=== PATIENT | female | born 1970 | race Caucasian/White ===

== ENCOUNTER 2022-12-31 09:19 | Emergency (ER) | payer OTHER ==
--- OUTSIDE RECORDS SUMMARY | 2022-12-31 09:23 | XMS REPORT | Continuity of Care Document ---
:1970 Author Organization [facility] t Address [address] [place] [id number] Care Team Providers Name Role Phone Jairon Lakhani Primary Care Physician LAKEISHA SINGLETON Attending Clinician Unavailable RAINER SMITH Attending Clinician Unavailable JAIRON GANN Attending Clinician Unavailable HERNAN SAN Attending Clinician Unavailable DANIELLE CLARK Attending Clinician Unavailable URSZULA MYERS Attending Clinician Unavailable MD ROOSEVELT Attending Clinician Unavailable VY AYERS Attending Clinician Unavailable PAULA JAIN Attending Clinician Unavailable Jain PACKazya S Attending Clinician LAB90 Attending Clinician Unavailable Jairon Lakhani Attending Clinician KAL ROSE Attending Clinician Unavailable Doctor Unassigned, [place] Attending Clinician Unavailable Vy Ayers DNP Attending Clinician Kal Rose MD Attending Clinician RICHARD BROWNING Attending Clinician Unavailable LIZZIE HOGAN Attending Clinician Unavailable Thelma Brewster MD Attending Clinician [phone] Lakeisha Singleton MD Attending Clinician Only, Ang Db Test Attending Clinician Unavailable Leann Venegas Attending Clinician LEANN CAMARENA Attending Clinician Unavailable JAIRON GANN Admitting Clinician Unavailable Payers Payer Name Policy Type Policy Number Effective Date Expiration Date Tom MARTINEZ MP CVS GOLD: 9 [id number] 2022 [employer] HMO OFF 00:00:00 ST[place] [employer] OF [place] - OUT [id number] 2022 OF STATE 00:00:00 [employer] CVS 2 [id number] 2022 MARKETPLACE 00:00:00 [employer] COMMERCIAL [id number] 2022 OUT OF NETWORK 00:00:00 Problems Condition Condition Condition Status Onset Resolution Last Treating Co mments Source Name Details Category Date Date Treatment Clinician Date Obesity Obesity Disease Active Univers (BMI (BMI 5-12 ity of 30-39.9) 30-39.9) 00:00: [place] [address] Medical Branch Hypertensi Hypertensi Disease Active U nivers on, on, 08-08 ity [place] 00 [place] Mixed Mixed Disease Active Univers hyperlipid hyperlipid 08-08 it y of emia emia 00:00: [address] Allergies, Adverse Reactions, Alerts Allergy Allergy Status Severity Reaction(s) Onset Inactive Treating Comm ents Source Name Type Date Date Clinician NO KNOWN Drug Active Univers ALLERGIE Class ity of S [facility] Social History Social Habit Start Date Stop Date Quantity Comments Source Gender identity 2022-11-13 Identifies as [place]ana Mayo - 05:16:24 female gender External (finding) Sexual orientation 2022-11-13 Heterosexual Rima Mayo - 05:16:24 (finding) External History of tobacco Cigarette Smoker Juana Mayo - use External History of Social 2022-11-25 2022-11-25 Juana Mayo - function 00:00:00 00:00:00 External Alcohol intake 2022-10-29 2022-10-29 1 /d University of 00:00:00 00:00:00 [facility] Exposure to 2022-09-10 2022-09-20 Not sure University SARS-CoV-2 (event) 00:00:00 11:45:00 [facility] Tobacco use and 2022-08-23 2022-08-23 Smokeless tobacco Un iversity of exposure 00:00:00 00:00:00 non-user [facility] Sex Ass[birth year] At [birth year] F Juana mackenzie - 00:00:00 00:00:00 External Smoking Status Start Date Stop Date Source Tobacco smoking [facility] xa consumption unknown Medical [facility] Occasional tobacco smoker 2022-11-25 00:00:00 Jose Mayo - External Ex-smoker 2022-08-23 00:00:00 2022-08-23 University o [facility] 00:00:00 [facility] Medications Ordered Filled Start Stop Current Ordering Indication Dosage Frequency Signature Comments Components Source Medication Medication Date Date Medication? Clinician (SIG) Name Name atorvastati Yes [id number] 10mg Take 1 Univers n 10 mg 8-16 tablet by ity of tablet 00:00: mouth at [place] [address] bedtime. Medical MUST BE Branch SEEN FOR FURTHER REFILLS atorvastati Yes [id number] 10mg Take 1 Univers n 10 mg 8-16 tablet by ity of tablet 00:00: mouth at [place] [address] bedtime. Medical MUST BE Branch SEEN FOR FURTHER REFILLS Acetaminoph 2022- No Take 1 Andres sey en-Codeine 8-15 08-15 tablet Seybol d 300-30 MG 13:58: 00:00 every 8 - oral Tablet 10 :00 hours by Exte rna oral l route. Clonazepam Yes .5mg Take 1 Kelse y 0.5 MG oral 8-15 tablet Seybol d Tablet 13:56: (0.5 mg - 24 total) by Externa mouth 3 l times daily Atorvastati Yes [id number] 10mg Take 1 [place] n Calcium 8-15 tablet (10 Seyb old 10 MG oral 00:00: mg total) - Tablet 00 by mouth Externa at bedtime l Olmesartan 0 Yes [id number] 20mg Take 1 K elsey Medoxomil 8-15 tablet (20 Seyb old 20 MG oral 00:00: mg total) - Tablet 00 by mouth Externa daily l Amlodipine 2023-0 Yes [id number] 5mg Take 1 K elsey Besylate 8-15 tablet (5 Seybol d (NORVASC) 5 00:00: mg total) - MG oral 00 by mouth Externa Tablet daily l Tizanidine 0 2022- No Take 1 Rima ey HCl 4 MG 8-14 08-14 tablet Seybold oral Tablet 08:27: 00:00 every day - 07 :00 by oral Externa route at l bedtime. Clonazepam 2022-0 Yes .5mg Take 1 Kelse y 0.5 MG oral 8-14 tablet Seybol d Tablet 08:18: (0.5 mg - 34 total) by Externa mouth 3 l times daily Acetaminoph 0 Yes Take 1 Rima ey en-Codeine 8-14 tablet Seybold 300-30 MG 08:18: every 8 - oral Tablet 34 hours by Exte rna oral l route. Duloxetine 2022-0 Yes [id number] 30mg Take 1 Juana HCl 8-14 capsule Seybold (Cymbalta) 00:00: (30 mg - 30 MG oral 00 total) by Exte rna Cap DR mouth l Particles daily No driving. No alcohol. No operating machinery. Baclofen 10 2022-0 Yes [id number] 10mg Take 1 Juana MG oral 8-14 tablet (10 Seybol d Tablet 00:00: mg total) - 00 by mouth Externa at bedtime l as needed No driving. No alcohol. No operating machinery. Duloxetine 2022-0 Yes [id number] 30mg Take 1 [place] HCl 8-14 capsule Seybold (Cymbalta) 00:00: (30 mg - 30 MG oral 00 total) by Exte rna Cap DR mouth l Particles daily No driving. No alcohol. No operating machinery. Baclofen 10 2022-0 Yes [id number] 10mg Take 1 [place]ana MG oral 8-14 tablet (10 Seybol d Tablet 00:00: mg total) - 00 by mouth Externa at bedtime l as needed No driving. No alcohol. No operating machinery. hydroCHLORO 2022-0 Yes [id number] 25mg Take 1 Univers thiazide 25 8-07 tablet by ity of mg [place] Medical morning. Branch hydroCHLORO 2022-0 Yes [id number] 25mg Take 1 Univers thiazide 25 8-07 tablet by ity of mg tablet 00:00: mouth in [facility] the morning. Branch hydroCHLORO 3-0 Yes [id number] 25mg Take 1 Univers thiazide 25 8-07 tablet by ity of mg tablet 00:00: mouth in [facility] the morning. Branch hydroCHLORO 3-0 Yes 25mg Take 1 Rima ey thiazide 25 8-07 tablet (25 Se ybold MG oral 00:00: mg total) - Tablet 00 by mouth Externa daily l hydroCHLORO 3-0 Yes 25mg Take 1 Rima ey thiazide 25 8-07 tablet (25 Se ybold MG oral 00:00: mg total) - Tablet 00 by mouth Externa daily l gabapentin 3-0 Yes [id number] 100mg Take 1 Univers 100 mg 7-18 capsule by ity of capsule 00:00: mouth in [place] [address] the morning Branch and 1 capsule at noon and 1 capsule in the evening. meloxicam 2022-0 Yes [id number] 15mg Take 1 U nivers (MOBIC) 15 7-18 tablet by ity of mg tablet 00:00: mouth in [facility] the morning. Branch gabapentin 2022-0 Yes [id number] 100mg Take 1 Univers 100 mg 7-18 capsule by ity of capsule 00:00: mouth in [place] [address] the morning Branch and 1 capsule at noon and 1 capsule in the evening. meloxicam 3-0 Yes [id number] 15mg Take 1 U nivers (MOBIC) 15 7-18 tablet by ity of mg tablet 00:00: mouth in [facility] the morning. Branch gabapentin 3-0 Yes [id number] 100mg Take 1 Univers 100 mg 7-18 capsule by ity of capsule 00:00: mouth in [place] [address] the morning Branch and 1 capsule at noon and 1 capsule in the evening. meloxicam 2023-0 Yes [id number] 15mg Take 1 U nivers (MOBIC) 15 7-18 tablet by ity of mg tablet 00:00: mouth in [place] [address] the morning. Branch gabapentin 3-0 Yes [id number] 100mg Take 1 Univers 100 mg 7-18 capsule by ity of capsule 00:00: mouth in [place] [address] the morning Branch and 1 capsule at noon and 1 capsule in the evening. meloxicam 2023-0 Yes [id number] 15mg Take 1 U nivers (MOBIC) 15 7-18 tablet by ity of mg tablet 00:00: mouth in [facility] 00 the Medical morning. Branch gabapentin 3-0 Yes [id number] 100mg Take 1 Univers 100 mg 7-18 capsule by ity of capsule 00:00: mouth in [place] 00 the Medical morning Branch and 1 capsule at noon and 1 capsule in the evening. meloxicam 2023-0 Yes [id number] 15mg Take 1 U nivers (MOBIC) 15 7-18 tablet by ity of mg tablet 00:00: mouth in [facility] 00 the Medical morning. Branch gabapentin 3-0 Yes [id number] 100mg Take 1 Univers 100 mg 7-18 capsule by ity of capsule 00:00: mouth in [place] 00 the Medical morning Branch and 1 capsule at noon and 1 capsule in the evening. meloxicam 2023-0 Yes [id number] 15mg Take 1 U nivers (MOBIC) 15 7-18 tablet by ity of mg tablet 00:00: mouth in [facility] 00 the Medical morning. Branch gabapentin 2022-0 Yes [id number] 100mg Take 1 Univers 100 mg 7-18 capsule by ity of capsule 00:00: mouth in [place] the Medical morning Branch and 1 capsule at noon and 1 capsule in the evening. meloxicam 2023-0 Yes [id number] 15mg Take 1 U nivers (MOBIC) 15 7-18 tablet by ity of mg tablet 00:00: mouth in [facility] 00 the Medical morning. Branch atorvastati 3-0 Yes [id number] 10mg Take 1 Univers n 10 mg 7-12 tablet by ity of tablet 00:00: mouth at [place] [address] bedtime. Medical MUST BE Branch SEEN FOR FURTHER REFILLS atorvastati 3-0 Yes [id number] 10mg Take 1 Univers n 10 mg 7-12 tablet by ity of tablet 00:00: mouth at [place] [address] bedtime. Medical MUST BE Branch SEEN FOR FURTHER REFILLS atorvastati 3-0 Yes [id number] 10mg Take 1 Univers n 10 mg 7-12 tablet by ity of tablet 00:00: mouth at [place] [address] bedtime. Medical MUST BE Branch SEEN FOR FURTHER REFILLS atorvastati 2023-0 Yes [id number] 10mg Take 1 Univers n 10 mg 7-12 tablet by ity of tablet 00:00: mouth at [place] 00 bedtime. Medical MUST BE Branch SEEN FOR FURTHER REFILLS atorvastati 0 Yes [id number] 10mg Take 1 Univers n 10 mg 7-12 tablet by ity of tablet 00:00: mouth at [place] 00 bedtime. Medical MUST BE Branch SEEN FOR FURTHER REFILLS Atorvastati Yes 10mg Take 1 Rima ey n Calcium 7-12 tablet (10 Seyb old 10 MG oral 00:00: mg total) - Tablet 00 by mouth Externa at bedtime l atorvastati 2022- No [id number] 10mg Take 1 Univers n 10 mg 7-12 08-16 tablet by ity of tablet 00:00: 00:00 mouth at [place] 00 :00 bedtime. Medical MUST BE Branch SEEN FOR FURTHER REFILLS Atorvastati 2022- No 10mg Take 1 Andres sey n Calcium 7-12 08-15 tablet (10 Sey bold 10 MG oral 00:00: 00:00 mg total) - Tablet 00 :00 by mouth Externa at bedtime l amitriptyli 0 Yes [id number] 25mg Take 1 Univers ne 25 mg 6-29 tablet by ity of tablet 00:00: mouth at [place] [address] bedtime. Medical Please get Branch ordered labs done amitriptyli 2022-0 Yes [id number] 25mg Take 1 Univers ne 25 mg 6-29 tablet by ity of tablet 00:00: mouth at [place] [address] bedtime. Medical Please get Branch ordered labs done amitriptyli 2022-0 Yes [id number] 25mg Take 1 Univers ne 25 mg 6-29 tablet by ity of tablet 00:00: mouth at [place] 00 bedtime. Medical Please get Branch ordered labs done amitriptyli 2022-0 Yes [id number] 25mg Take 1 Univers ne 25 mg 6-29 tablet by ity of tablet 00:00: mouth at [place] [address] bedtime. Medical Please get Branch ordered labs done amitriptyli 2022-0 Yes [id number] 25mg Take 1 Univers ne 25 mg 6-29 tablet by ity of tablet 00:00: mouth at [place] [address] bedtime. Medical Please get Branch ordered labs done amitriptyli 3-0 Yes [id number] 25mg Take 1 Univers ne 25 mg 6-29 tablet by ity of tablet 00:00: mouth at [place] 00 bedtime. Medical Please get Branch ordered labs done amitriptyli 2022-0 Yes [id number] 25mg Take 1 Univers ne 25 mg 6-29 tablet by ity of tablet 00:00: mouth at [place] 00 bedtime. Medical Please get Branch ordered labs done amitriptyli 3-0 Yes [id number] 25mg Take 1 Univers ne 25 mg 6-29 tablet by ity of tablet 00:00: mouth at [place] 00 bedtime. Medical Please get Branch ordered labs done atorvastati 2022-0 Yes [id number] 10mg Take 1 Univers n 10 mg 6-05 tablet by ity of tablet 00:00: mouth at [place] [address] bedtime. Medical MUST BE Branch SEEN FOR FURTHER REFILLS atorvastati 2022-0 Yes [id number] 10mg Take 1 Univers n 10 mg 6-05 tablet by ity of tablet 00:00: mouth at [place] [address] bedtime. Medical MUST BE Branch SEEN FOR FURTHER REFILLS atorvastati 2022-0 Yes [id number] 10mg Take 1 Univers n 10 mg 6-05 tablet by ity of tablet 00:00: mouth at [place] [address] bedtime. Medical MUST BE Branch SEEN FOR FURTHER REFILLS atorvastati 2022-0 Yes [id number] 10mg Take 1 Univers n 10 mg 6-05 tablet by ity of tablet 00:00: mouth at [place] [address] bedtime. Medical MUST BE Branch SEEN FOR FURTHER REFILLS atorvastati 2022-0 Yes [id number] 10mg Take 1 Univers n 10 mg 6-05 tablet by ity of tablet 00:00: mouth at [place] 00 bedtime. Medical MUST BE Branch SEEN FOR FURTHER REFILLS olmesartan 2022-0 Yes [id number] 20mg Take 1 U nivers 20 mg 5-09 tablet by ity of tablet 00:00: mouth in [place] 00 the Medical morning. Branch olmesartan 3-0 Yes [id number] 20mg Take 1 U nivers 20 mg 5-09 tablet by ity of tablet 00:00: mouth in [place] 00 the Medical morning. Branch olmesartan 3-0 Yes [id number] 20mg Take 1 U nivers 20 mg 5-09 tablet by ity of tablet 00:00: mouth in [place] the Medical morning. Branch olmesartan 2023-0 Yes [id number] 20mg Take 1 U nivers 20 mg 5-09 tablet by ity of tablet 00:00: mouth in [place] the Medical morning. Branch olmesartan 2023-0 Yes [id number] 20mg Take 1 U nivers 20 mg 5-09 tablet by ity of tablet 00:00: mouth in [place] the Medical morning. Branch olmesartan 2023-0 Yes [id number] 20mg Take 1 U nivers 20 mg 5-09 tablet by ity of tablet 00:00: mouth in [place] the Medical morning. Branch olmesartan 2023-0 Yes [id number] 20mg Take 1 U nivers 20 mg 5-09 tablet by ity of tablet 00:00: mouth in [place] the Medical morning. Branch olmesartan 2023-0 Yes [id number] 20mg Take 1 U nivers 20 mg 5-09 tablet by ity of tablet 00:00: mouth in [place] the Medical morning. Branch olmesartan 2023-0 Yes [id number] 20mg Take 1 U nivers 20 mg 5-09 tablet by ity of tablet 00:00: mouth in [place] the Medical morning. Branch olmesartan 2023-0 Yes [id number] 20mg Take 1 U nivers 20 mg 5-09 tablet by ity of tablet 00:00: mouth in [place] the Medical morning. Branch olmesartan 2023-0 Yes [id number] 20mg Take 1 U nivers 20 mg 5-09 tablet by ity of tablet 00:00: mouth in [place] the Medical morning. Branch olmesartan 2023-0 Yes [id number] 20mg Take 1 U nivers 20 mg 5-09 tablet by ity of tablet 00:00: mouth in [place] the Medical morning. Branch olmesartan 2023-0 Yes [id number] 20mg Take 1 U nivers 20 mg 5-09 tablet by ity of tablet 00:00: mouth in [place] the Medical morning. Branch olmesartan 2023-0 Yes [id number] 20mg Take 1 U nivers 20 mg 5-09 tablet by ity of tablet 00:00: mouth in [place] the Medical morning. Branch olmesartan 2023-0 Yes [id number] 20mg Take 1 U nivers 20 mg 5-09 tablet by ity of tablet 00:00: mouth in [place] 00 the Medical morning. Branch olmesartan Yes [id number] 20mg Take 1 U nivers 20 mg 5-09 tablet by ity of tablet 00:00: mouth in [place] 00 the Medical morning. Branch Olmesartan Yes 20mg Take 1 Kelse y Medoxomil 5-09 tablet (20 Seyb old 20 MG oral 00:00: mg total) - Tablet 00 by mouth Externa daily l Olmesartan 2022- No 20mg Take 1 Rima ey Medoxomil 5-09 08-15 tablet (20 Sey bold 20 MG oral 00:00: 00:00 mg total) - Tablet 00 :00 by mouth Externa daily l atorvastati 2022- No atorvastat Univers n 10 mg 5-05 05-05 in 10 mg ity of tablet 17:20: 00:00 tablet [place] 02 :00 Medical Branch atorvastati Yes [id number] 10mg Take 1 Univers n 10 mg 5-05 tablet by ity of tablet 00:00: mouth at [place] [address] bedtime. Medical Branch atorvastati Yes [id number] 10mg Take 1 Univers n 10 mg 5-05 tablet by ity of tablet 00:00: mouth at [place] [address] bedtime. Medical Branch atorvastati Yes [id number] 10mg Take 1 Univers n 10 mg 5-05 tablet by ity of tablet 00:00: mouth at [place] 00 bedtime. Medical Branch atorvastati Yes [id number] 10mg Take 1 Univers n 10 mg 5-05 tablet by ity of tablet 00:00: mouth at [place] 00 bedtime. Medical Branch atorvastati Yes [id number] 10mg Take 1 Univers n 10 mg 5-05 tablet by ity of tablet 00:00: mouth at [place] [address] bedtime. Medical Branch atorvastati Yes [id number] 10mg Take 1 Univers n 10 mg 5-05 tablet by ity of tablet 00:00: mouth at [place] [address] bedtime. Medical Branch atorvastati 2022- No [id number] 10mg Take 1 Univers n 10 mg 5-05 06-05 tablet by ity of tablet 00:00: 00:00 mouth at [place] 00 :00 bedtime. Medical Branch olmesartan 2023-0 2023- No olmesartan Univers 20 mg 4-27 04-27 20 mg ity of tablet 09:33: 00:00 tablet [place] 00 :00 Medical Branch olmesartan 2023-0 3- No olmesartan Univers 20 mg 4-27 04-27 20 mg ity of tablet 09:33: 00:00 tablet [place] 00 :00 Medical Branch hydroCHLORO 2023-0 2023- No hydrochlor Univers thiazide 4-27 04-27 othiazide ity o f 12.5 mg 09:32: 00:00 12.5 mg [place] tablet 54 :00 tablet [facility] Branch hydroCHLORO 2023-0 2023- No hydrochlor Univers thiazide 4-27 04-27 othiazide ity o f 12.5 mg 09:32: 00:00 12.5 mg [place] tablet 54 :00 tablet [facility] clonazePAM 2023-0 Yes .5mg Take 1 Unive rs 0.5 mg 4-27 tablet by ity of tablet 09:11: mouth in [address] and 1 tablet at noon and 1 tablet in the evening. clonazePAM 2023-0 Yes .5mg Take 1 Unive rs 0.5 mg 4-27 tablet by ity of tablet 09:11: mouth in [address] and 1 tablet at noon and 1 tablet in the evening. clonazePAM 2023-0 Yes .5mg Take 1 Unive rs 0.5 mg 4-27 tablet by ity of tablet 09:11: mouth in [address] and 1 tablet at noon and 1 tablet in the evening. clonazePAM 2023-0 Yes .5mg Take 1 Unive rs 0.5 mg 4-27 tablet by ity of tablet 09:11: mouth in [address] and 1 tablet at noon and 1 tablet in the evening. clonazePAM 2023-0 Yes .5mg Take 1 Unive rs 0.5 mg 4-27 tablet by ity of tablet 09:11: mouth in [address] and 1 tablet at noon and 1 tablet in the evening. clonazePAM 2023-0 Yes .5mg Take 1 Unive rs 0.5 mg 4-27 tablet by ity of tablet 09:11: mouth in [address] morning [place] and 1 tablet at noon and 1 tablet in the evening. clonazePAM 2023-0 Yes .5mg Take 1 Unive rs 0.5 mg 4-27 tablet by ity of tablet 09:11: mouth in [place] [address] the [facility] and 1 tablet at noon and 1 tablet in the evening. clonazePAM 2023-0 Yes .5mg Take 1 Unive rs 0.5 mg 4-27 tablet by ity of tablet 09:11: mouth in [place] [address] the [facility] and 1 tablet at noon and 1 tablet in the evening. clonazePAM 2023-0 Yes .5mg Take 1 Unive rs 0.5 mg 4-27 tablet by ity of tablet 09:11: mouth in [address] and 1 tablet at noon and 1 tablet in the evening. clonazePAM 2023-0 Yes .5mg Take 1 Unive rs 0.5 mg 4-27 tablet by ity of tablet 09:11: mouth in [address] and 1 tablet at noon and 1 tablet in the evening. clonazePAM 2023-0 Yes .5mg Take 1 Unive rs 0.5 mg 4-27 tablet by ity of tablet 09:11: mouth in [address] and 1 tablet at noon and 1 tablet in the evening. clonazePAM 2023-0 Yes .5mg Take 1 Unive rs 0.5 mg 4-27 tablet by ity of tablet 09:11: mouth in [address] and 1 tablet at noon and 1 tablet in the evening. clonazePAM 2023-0 Yes .5mg Take 1 Unive rs 0.5 mg 4-27 tablet by ity of tablet 09:11: mouth in [address] and 1 tablet at noon and 1 tablet in the evening. clonazePAM 2023-0 Yes .5mg Take 1 Unive rs 0.5 mg 4-27 tablet by ity of tablet 09:11: mouth in [address] and 1 tablet at noon and 1 tablet in the evening. clonazePAM 2023-0 Yes .5mg Take 1 Unive rs 0.5 mg 4-27 tablet by ity of tablet 09:11: mouth in [address] and 1 tablet at noon and 1 tablet in the evening. clonazePAM 2023-0 Yes .5mg Take 1 Unive rs 0.5 mg 4-27 tablet by ity of tablet 09:11: mouth in [place] [address] the Medical morning [place] and 1 tablet at noon and 1 tablet in the evening. clonazePAM 2023-0 Yes .5mg Take 1 Unive rs 0.5 mg 4-27 tablet by ity of tablet 09:11: mouth in [place] [address] the [facility] morning [place] and 1 tablet at noon and 1 tablet in the evening. clonazePAM 2023-0 Yes .5mg Take 1 Unive rs 0.5 mg 4-27 tablet by ity of tablet 09:11: mouth in [place] [address] the [facility] morning [place] and 1 tablet at noon and 1 tablet in the evening. clonazePAM 2023-0 Yes .5mg Take 1 Unive rs 0.5 mg 4-27 tablet by ity of tablet 09:11: mouth in [place] [address] the [facility] and 1 tablet at noon and 1 tablet in the evening. clonazePAM 2023-0 Yes .5mg Take 1 Unive rs 0.5 mg 4-27 tablet by ity of tablet 09:11: mouth in [place] [address] the [facility] and 1 tablet at noon and 1 tablet in the evening. atorvastati 2023-0 Yes atorvastat Univers n 10 mg 4-27 in 10 mg ity of tablet 09:10: tablet [address] atorvastati 2023-0 Yes atorvastat Univers n 10 mg 4-27 in 10 mg ity of tablet 09:10: tablet [place] [facility] olmesartan 2023-0 Yes [id number] olmesartan Univers 20 mg 4-27 20 mg ity of tablet 00:00: tablet [place] 00 Medical Branch hydroCHLORO 2023-0 Yes [id number] 25mg Take 1 Univers thiazide 25 4-27 tablet by ity of mg tablet 00:00: mouth in [place] [address] the Medical morning. Branch amitriptyli 2023-0 Yes [id number] 25mg Take 1 Univers ne 25 mg 4-27 tablet by ity of tablet 00:00: mouth at [place] [address] bedtime. Medical Branch methocarbam 2023-0 Yes [id number] 500mg Take 1 Univers oL 500 mg 4-27 tablet by ity o f tablet 00:00: mouth 4 (four) Medical times Branch daily as needed for Pain (scale 7-10). hydroCHLORO 2022-0 Yes [id number] 25mg Take 1 Univers thiazide 25 4-27 tablet by ity of mg tablet 00:00: mouth in the Medical morning. Branch amitriptyli 2022-0 Yes [id number] 25mg Take 1 Univers ne 25 mg 4-27 tablet by ity of tablet 00:00: mouth at bedtime. Medical Branch methocarbam 2022-0 Yes [id number] 500mg Take 1 Univers oL 500 mg 4-27 tablet by ity o f tablet 00:00: mouth 4 (four) Medical times Branch daily as needed for Pain (scale 7-10). hydroCHLORO 2022-0 Yes [id number] 25mg Take 1 Univers thiazide 25 4-27 tablet by ity of mg tablet 00:00: mouth in the Medical morning. Branch amitriptyli 2022-0 Yes [id number] 25mg Take 1 Univers ne 25 mg 4-27 tablet by ity of tablet 00:00: mouth at bedtime. Medical Branch methocarbam 2022-0 Yes [id number] 500mg Take 1 Univers oL 500 mg 4-27 tablet by ity o f tablet 00:00: mouth (four) Medical times Branch daily as needed for Pain (scale 7-10). hydroCHLORO 2022-0 Yes [id number] 25mg Take 1 Univers thiazide 25 4-27 tablet by ity of mg tablet 00:00: mouth in the Medical morning. Branch amitriptyli 2022-0 Yes [id number] 25mg Take 1 Univers ne 25 mg 4-27 tablet by ity of tablet 00:00: mouth at 00 bedtime. Medical Branch methocarbam 2022-0 Yes [id number] 500mg Take 1 Univers oL 500 mg 4-27 tablet by ity o f tablet 00:00: mouth 4 (four) Medical times Branch daily as needed for Pain (scale 7-10). hydroCHLORO 3-0 Yes [id number] 25mg Take 1 Univers thiazide 25 4-27 tablet by ity of mg tablet 00:00: mouth in the Medical morning. Branch amitriptyli 2022-0 Yes [id number] 25mg Take 1 Univers ne 25 mg 4-27 tablet by ity of tablet 00:00: mouth at 00 bedtime. Medical Branch methocarbam 2022-0 Yes [id number] 500mg Take 1 Univers oL 500 mg 4-27 tablet by ity o f tablet 00:00: mouth 4 (four) Medical times Branch daily as needed for Pain (scale 7-10). hydroCHLORO 2022-0 Yes [id number] 25mg Take 1 Univers thiazide 25 4-27 tablet by ity of mg tablet 00:00: [place] the Medical morning. Branch amitriptyli 2022-0 Yes [id number] 25mg Take 1 Univers ne 25 mg 4-27 tablet by ity of tablet 00:00: mouth at 00 bedtime. Medical Branch methocarbam 2022-0 Yes [id number] 500mg Take 1 Univers oL 500 mg 4-27 tablet by ity o f tablet 00:00: mouth 4 (four) Medical times Branch daily as needed for Pain (scale 7-10). hydroCHLORO 2022-0 Yes [id number] 25mg Take 1 Univers thiazide 25 4-27 tablet by ity of mg tablet 00:00: mouth in the Medical morning. Branch amitriptyli 2022-0 Yes [id number] 25mg Take 1 Univers ne 25 mg 4-27 tablet by ity of tablet 00:00: mouth at 00 bedtime. Medical Branch methocarbam 2022-0 Yes [id number] 500mg Take 1 Univers oL 500 mg 4-27 tablet by ity o f tablet 00:00: mouth 4 (four) Medical times Branch daily as needed for Pain (scale 7-10). hydroCHLORO 3-0 Yes [id number] 25mg Take 1 Univers thiazide 25 4-27 tablet by ity of mg tablet 00:00: [place] the Medical morning. Branch amitriptyli 2022-0 Yes [id number] 25mg Take 1 Univers ne 25 mg 4-27 tablet by ity of tablet 00:00: mouth at 00 bedtime. Medical Branch methocarbam 2022-0 Yes [id number] 500mg Take 1 Univers oL 500 mg 4-27 tablet by ity o f tablet 00:00: mouth 4 [place] 00 (four) Medical times Branch daily as needed for Pain (scale 7-10). hydroCHLORO 2023-0 Yes [id number] 25mg Take 1 Univers thiazide 25 4-27 tablet by ity of mg tablet 00:00: mouth in the Medical morning. Branch amitriptyli 3-0 Yes [id number] 25mg Take 1 Univers ne 25 mg 4-27 tablet by ity of tablet 00:00: mouth at 00 bedtime. Medical Branch methocarbam 3-0 Yes [id number] 500mg Take 1 Univers oL 500 mg 4-27 tablet by ity o f tablet 00:00: mouth 4 (four) Medical times Branch daily as needed for Pain (scale 7-10). hydroCHLORO 3-0 Yes [id number] 25mg Take 1 Univers thiazide 25 4-27 tablet by ity of mg tablet 00:00: mouth in the Medical morning. Branch methocarbam 3-0 Yes [id number] 500mg Take 1 Univers oL 500 mg 4-27 tablet by ity o f tablet 00:00: mouth (four) Medical times Branch daily as needed for Pain (scale 7-10). hydroCHLORO 3-0 Yes [id number] 25mg Take 1 Univers thiazide 25 4-27 tablet by ity of mg tablet 00:00: mouth in the Medical morning. Branch methocarbam 3-0 Yes [id number] 500mg Take 1 Univers oL 500 mg 4-27 tablet by ity o f tablet 00:00: mouth (four) Medical times Branch daily as needed for Pain (scale 7-10). hydroCHLORO 3-0 Yes [id number] 25mg Take 1 Univers thiazide 25 4-27 tablet by ity of mg tablet 00:00: mouth in the Medical morning. Branch methocarbam 3-0 Yes [id number] 500mg Take 1 Univers oL 500 mg 4-27 tablet by ity o f tablet 00:00: mouth (four) Medical times Branch daily as needed for Pain (scale 7-10). hydroCHLORO 2023-0 Yes [id number] 25mg Take 1 Univers thiazide 25 4-27 tablet by ity of mg tablet 00:00: mouth in [place] Medical morning. Branch methocarbam 3-0 Yes [id number] 500mg Take 1 Univers oL 500 mg 4-27 tablet by ity o f tablet 00:00: mouth (four) Medical times Branch daily as needed for Pain (scale 7-10). hydroCHLORO 3-0 Yes [id number] 25mg Take 1 Univers thiazide 25 4-27 tablet by ity of mg tablet 00:00: [place] the Medical morning. Branch methocarbam 3-0 Yes [id number] 500mg Take 1 Univers oL 500 mg 4-27 tablet by ity o f tablet 00:00: mouth (four) Medical times Branch daily as needed for Pain (scale 7-10). methocarbam 3-0 Yes [id number] 500mg Take 1 Univers oL 500 mg 4-27 tablet by ity o f tablet 00:00: mouth (four) Medical times Branch daily as needed for Pain (scale 7-10). methocarbam 2022-0 Yes [id number] 500mg Take 1 Univers oL 500 mg 4-27 tablet by ity o f tablet 00:00: mouth () Medical times Branch daily as needed for Pain (scale 7-10). methocarbam 3-0 Yes [id number] 500mg Take 1 Univers oL 500 mg 4-27 tablet by ity o f tablet 00:00: mouth () Medical times Branch daily as needed for Pain (scale 7-10). olmesartan 3-0 Yes [id number] olmesartan Univers 20 mg 4-27 20 mg ity of tablet 00:00: tablet 00 Medical Branch hydroCHLORO 3-0 Yes [id number] 25mg Take 1 Univers thiazide 25 4-27 tablet by ity of mg tablet 00:00: [place] the Medical morning. Branch amitriptyli 3-0 Yes [id number] 25mg Take 1 Univers ne 25 mg 4-27 tablet by ity of tablet 00:00: mouth at 00 bedtime. Medical Branch methocarbam 3-0 Yes [id number] 500mg Take 1 Univers oL 500 mg 4-27 tablet by ity o f tablet 00:00: mouth (four) Medical times Branch daily as needed for Pain (scale 7-10). olmesartan 3-0 Yes [id number] olmesartan Univers 20 mg 4-27 20 mg ity of tablet 00:00: tablet 00 Medical Branch hydroCHLORO 2022-0 Yes [id number] 25mg Take 1 Univers thiazide 25 4-27 tablet by ity of mg tablet 00:00: [place] the Medical morning. Branch amitriptyli 2022-0 Yes [id number] 25mg Take 1 Univers ne 25 mg 4-27 tablet by ity of tablet 00:00: mouth at [place] 00 bedtime. Medical Branch methocarbam 2022-0 Yes [id number] 500mg Take 1 Univers oL 500 mg 4-27 tablet by ity o f tablet 00:00: mouth 4 [place] 00 (four) Medical times Branch daily as needed for Pain (scale 7-10). olmesartan 2022-0 Yes [id number] olmesartan Univers 20 mg 4-27 20 mg ity of tablet 00:00: tablet 00 Medical Branch hydroCHLORO 2022-0 Yes [id number] 25mg Take 1 Univers thiazide 25 4-27 tablet by ity [facility] mg [facility] 00:[facility] Branch amitriptyli 2022-0 Yes [id number] 25mg Take 1 Univers ne 25 mg 4-27 tablet by ity of tablet 00:00: mouth at [place] 00 bedtime. Medical Branch methocarbam 2022-0 Yes [id number] 500mg Take 1 Univers oL 500 mg 4-27 tablet by ity o f tablet 00:00: mouth 4 [place] 00 (four) Medical times [place] daily as needed for Pain (scale 7-10). hydroCHLORO 2022-0 2022- No [id number] 25mg Take 1 Univers thiazide 25 4-27 08-05 tablet by it y of mg tablet 00:00: 00:00 mouth in [place] 00 :00 the Medical morning. Branch amitriptyli 2022-0 3- No [id number] 25mg Take 1 Univers ne 25 mg 4-27 06-29 tablet by ity o f tablet 00:00: 00:00 mouth at [place] 00 :00 bedtime. Medical Branch olmesartan 2022-0 3- No [id number] olmesartan Univers 20 mg 4-27 05-09 20 mg ity of tablet 00:00: 00:00 tablet [place] 00 :00 Medical Branch No known 2020- No Univers medications 2-30 ity of 17:39: [address] Branch Immunizations Ordered Filled Immunization Date Status Comments [facility] e Immunization Name Name David CHAPARRO 2022-08-12 Completed [place] gentile - (Shingrix) 00:00:00 External SARS-COV-2 COVID-19 2021-03-18 Completed Unive rsity of VACCINE - (MODERNA) 00:00:00 [facility] Branch SARS-COV-2 COVID-19 2021-03-18 Completed Unive rsity of VACCINE - (MODERNA) 00:00:00 [facility] SARS-COV-2 COVID-19 2021-03-18 Completed Unive rsity of VACCINE - (MODERNA) 00:00:00 [facility] SARS-COV-2 COVID-19 2021-03-18 Completed Unive rsity of VACCINE - (MODERNA) 00:00:00 [facility] SARS-COV-2 COVID-19 2021-03-18 Completed Unive rsity of VACCINE - (MODERNA) 00:00:00 [facility] SARS-COV-2 COVID-19 2021-03-18 Completed Unive rsity of VACCINE - (MODERNA) 00:00:00 [facility] SARS-COV-2 COVID-19 2021-03-18 Completed Unive rsity of VACCINE - (MODERNA) 00:00:00 [facility] SARS-COV-2 COVID-19 2021-03-18 Completed Unive rsity of VACCINE - (MODERNA) 00:00:00 [facility] SARS-COV-2 COVID-19 2021-03-18 Completed Unive rsity of VACCINE - (MODERNA) 00:00:00 [facility] SARS-COV-2 COVID-19 2021-03-18 Completed Unive rsity of VACCINE - (MODERNA) 00:00:00 [facility] SARS-COV-2 COVID-19 2021-03-18 Completed Unive rsity of VACCINE - (MODERNA) 00:00:00 [facility] SARS-COV-2 COVID-19 2021-03-18 Completed Unive rsity of VACCINE - (MODERNA) 00:00:00 [facility] SARS-COV-2 COVID-19 2021-03-18 Completed Unive rsity of VACCINE - (MODERNA) 00:00:00 [facility] SARS-COV-2 COVID-19 2021-03-18 Completed Unive rsity of VACCINE - (MODERNA) 00:00:00 [facility] Branch SARS-COV-2 COVID-19 2021-03-18 Completed Unive rsity of VACCINE - (MODERNA) 00:00:00 [facility] SARS-COV-2 COVID-19 2021-03-18 Completed Unive rsity of VACCINE - (MODERNA) 00:00:00 [facility] Branch SARS-COV-2 COVID-19 2021-03-18 Completed Unive rsity of VACCINE - (MODERNA) 00:00:00 [facility] SARS-COV-2 COVID-19 2021-03-18 Completed Unive rsity of VACCINE - (MODERNA) 00:00:00 [facility] SARS-COV-2 COVID-19 2021-03-18 Completed Unive rsity of VACCINE - (MODERNA) 00:00:00 [facility] SARS-COV-2 COVID-19 2021-03-18 Completed Unive rsity of VACCINE - (MODERNA) 00:00:00 [facility] SARS-COV-2 COVID-19 2020-06-18 Completed Unive rsity of MODERNA 12+ YRS 00:00:00 [facility] ical VACCINE Branch SARS-COV-2 COVID-19 2020-06-18 Completed Unive rsity of MODERNA 12+ YRS 00:00:00 [facility] ical VACCINE Branch SARS-COV-2 COVID-19 2020-06-18 Completed Unive rsity of MODERNA VACCINE 00:00:00 [place] Med ical Branch SARS-COV-2 COVID-19 2020-06-18 Completed Unive rsity of MODERNA 12+ YRS 00:00:00 [place] Med ical VACCINE Branch SARS-COV-2 COVID-19 2020-06-18 Completed Unive rsity of MODERNA 12+ YRS 00:00:00 [place] Med ical VACCINE Branch SARS-COV-2 COVID-19 2020-06-18 Completed Unive rsity of MODERNA 12+ YRS 00:00:00 [facility] ical VACCINE Branch SARS-COV-2 COVID-19 2020-06-18 Completed Unive rsity of MODERNA 12+ YRS 00:00:00 [place] Med ical VACCINE Branch SARS-COV-2 COVID-19 2020-06-18 Completed Unive rsity of MODERNA 12+ YRS 00:00:00 [place] Med ical VACCINE Branch SARS-COV-2 COVID-19 2020-06-18 Completed Unive rsity of MODERNA 12+ YRS 00:00:00 [place] Med ical VACCINE Branch SARS-COV-2 COVID-19 2020-06-18 Completed Unive rsity of MODERNA 12+ YRS 00:00:00 [place] Med ical VACCINE Branch SARS-COV-2 COVID-19 2020-06-18 Completed Unive rsity of MODERNA 12+ YRS 00:00:00 [place] Med ical VACCINE Branch SARS-COV-2 COVID-19 2020-06-18 Completed Unive rsity of MODERNA 12+ YRS 00:00:00 [place] Med ical VACCINE Branch SARS-COV-2 COVID-19 2020-06-18 Completed Unive rsity of MODERNA 12+ YRS 00:00:00 [place] Med ical VACCINE Branch SARS-COV-2 COVID-19 2020-06-18 Completed Unive rsity of MODERNA 12+ YRS 00:00:00 [place] Med ical VACCINE Branch SARS-COV-2 COVID-19 2020-06-18 Completed Unive rsity of MODERNA 12+ YRS 00:00:00 [place] Med ical VACCINE Branch SARS-COV-2 COVID-19 2020-06-18 Completed Unive rsity of MODERNA 12+ YRS 00:00:00 [place] Med ical VACCINE Branch SARS-COV-2 COVID-19 2020-06-18 Completed Unive rsity of MODERNA 12+ YRS 00:00:00 [place] Med ical VACCINE Branch SARS-COV-2 COVID-19 2020-06-18 Completed Unive rsity of MODERNA 12+ YRS 00:00:00 [place] Med ical VACCINE Branch SARS-COV-2 COVID-19 2020-06-18 Completed Unive rsity of MODERNA 12+ YRS 00:00:00 [place] Med ical VACCINE Branch SARS-COV-2 COVID-19 2020-06-18 Completed Unive rsity of MODERNA 12+ YRS 00:00:00 [place] Med ical VACCINE Branch SARS-COV-2 COVID-19 2020-06-18 Completed Unive rsity of MODERNA 12+ YRS 00:00:00 [place] Med ical VACCINE Branch SARS-COV-2 COVID-19 2020-06-18 Completed Unive rsity of MODERNA 12+ YRS 00:00:00 [place] Med ical VACCINE Branch SARS-COV-2 COVID-19 2020-05-21 Completed Unive rsity of MODERNA 12+ YRS 00:00:00 [place] Med ical VACCINE Branch SARS-COV-2 COVID-19 2020-05-21 Completed Unive rsity of MODERNA VACCINE 00:00:00 [place] Med ical Branch SARS-COV-2 COVID-19 2020-05-21 Completed Unive rsity of MODERNA 12+ YRS 00:00:00 [place] Med ical VACCINE Branch SARS-COV-2 COVID-19 2020-05-21 Completed Unive rsity of MODERNA 12+ YRS 00:00:00 [place] Med ical VACCINE Branch SARS-COV-2 COVID-19 2020-05-21 Completed Unive rsity of MODERNA 12+ YRS 00:00:00 [place] Med ical VACCINE Branch SARS-COV-2 COVID-19 2020-05-21 Completed Unive rsity of MODERNA 12+ YRS 00:00:00 [place] Med ical VACCINE Branch SARS-COV-2 COVID-19 2020-05-21 Completed Unive rsity of MODERNA 12+ YRS 00:00:00 [place] Med ical VACCINE Branch SARS-COV-2 COVID-19 2020-05-21 Completed Unive rsity of MODERNA 12+ YRS 00:00:00 [place] Med ical VACCINE Branch SARS-COV-2 COVID-19 2020-05-21 Completed Unive rsity of MODERNA 12+ YRS 00:00:00 [place] Med ical VACCINE Branch SARS-COV-2 COVID-19 2020-05-21 Completed Unive rsity of MODERNA 12+ YRS 00:00:00 [place] Med ical VACCINE Branch SARS-COV-2 COVID-19 2020-05-21 Completed Unive rsity of MODERNA 12+ YRS 00:00:00 [place] Med ical VACCINE Branch SARS-COV-2 COVID-19 2020-05-21 Completed Unive rsity of MODERNA 12+ YRS 00:00:00 [place] Med ical VACCINE Branch SARS-COV-2 COVID-19 2020-05-21 Completed Unive rsity of MODERNA 12+ YRS 00:00:00 [place] Med ical VACCINE Branch SARS-COV-2 COVID-19 2020-05-21 Completed Unive rsity of MODERNA 12+ YRS 00:00:00 [place] Med ical VACCINE Branch SARS-COV-2 COVID-19 2020-05-21 Completed Unive rsity of MODERNA 12+ YRS 00:00:00 [place] Med ical VACCINE Branch SARS-COV-2 COVID-19 2020-05-21 Completed Unive rsity of MODERNA 12+ YRS 00:00:00 [place] Med ical VACCINE Branch SARS-COV-2 COVID-19 2020-05-21 Completed Unive rsity of MODERNA 12+ YRS 00:00:00 [place] Med ical VACCINE Branch SARS-COV-2 COVID-19 2020-05-21 Completed Unive rsity of MODERNA 12+ YRS 00:00:00 [place] Med ical VACCINE Branch SARS-COV-2 COVID-19 2020-05-21 Completed Unive rsity of MODERNA 12+ YRS 00:00:00 [place] Med ical VACCINE Branch SARS-COV-2 COVID-19 2020-05-21 Completed Unive rsity of MODERNA 12+ YRS 00:00:00 [place] Med ical VACCINE Branch SARS-COV-2 COVID-19 2020-05-21 Completed Unive rsity of MODERNA 12+ YRS 00:00:00 [place] [facility] ical VACCINE Branch SARS-COV-2 COVID-19 2020-05-21 Completed Unive rsity of MODERNA 12+ YRS 00:00:00 [facility] ical VACCINE Branch DTAP 2016-07-24 Completed University of 00:00:00 [facility] DTAP 2016-07-24 Completed University of 00:00:00 [facility] DTAP 2016-07-24 Completed University of 00:00:00 [facility] DTAP 2016-07-24 Completed University of 00:00:00 [facility] DTAP 2016-07-24 Completed University of 00:00:00 [facility] DTAP 2016-07-24 Completed University of 00:00:00 [facility] DTAP 2016-07-24 Completed University of 00:00:00 [place] [facility] DTAP 2016-07-24 Completed University of 00:00:00 [place] [facility] DTAP 2016-07-24 Completed University of 00:00:00 [place] [facility] DTAP 2016-07-24 Completed University of 00:00:00 [place] [facility] DTAP 2016-07-24 Completed University of 00:00:00 [place] [facility] DTAP 2016-07-24 Completed University of 00:00:00 [place] [facility] DTAP 2016-07-24 Completed University of 00:00:00 [place] [facility] DTAP 2016-07-24 Completed University of 00:00:00 [place] [facility] DTAP 2016-07-24 Completed University of 00:00:00 [place] [facility] DTAP 2016-07-24 Completed University of 00:00:00 [place] [facility] DTAP 2016-07-24 Completed University of 00:00:00 [place] [facility] DTAP 2016-07-24 Completed University of 00:00:00 [place] [facility] DTAP 2016-07-24 Completed University of 00:00:00 [place] [facility] DTAP 2016-07-24 Completed University of 00:00:00 [facility] Branch DTaP 2016-07-24 Completed [place] Mayo - 00:00:00 External Vital Signs Vital Name Observation Time Observation Value Comments Source Systolic blood 2022-12-02 16:08:00 191 mm[Hg] Univer sity of pressure [facility] Diastolic blood 2022-12-02 16:08:00 107 mm[Hg] Unive rsity of pressure [facility] Heart rate 2022-12-02 16:08:00 113 /min [facility] Body temperature 2022-12-02 16:08:00 36.83 Niya [facility] 2022-12-02 16:08:00 20 /min [facility] Body weight 2022-12-02 16:08:00 102.967 kg [facility] BMI 2022-12-02 16:08:00 35.55 kg/m2 [facility] Oxygen saturation in 2022-12-02 16:08:00 99 /min University Arterial blood by [facility] Pulse oximetry Branch Systolic blood 2022-11-26 19:25:00 152 mm[Hg] [place]ana Seybold - pressure External Diastolic blood 2022-11-26 19:25:00 88 mm[Hg] Jhonny y Seybold - pressure External Heart rate 2022-11-26 18:56:00 91 /min [place] Santos eybold - External Body temperature 2022-11-26 18:56:00 36.61 Niya Rima fleming Seybold - External Respiratory rate 2022-11-26 18:56:00 15 /min Rima fleming Seybold - External Body height 2022-11-26 18:56:00 170.2 cm [place] Santos eybold - External Body weight 2022-11-26 18:56:00 104.327 kg [place] Santos eybold - External BMI 2022-11-26 18:56:00 36.02 kg/m2 Juana flemingbold - External Oxygen saturation in 2022-11-26 18:56:00 99 /min [place] Mayo - Arterial blood by External Pulse oximetry Body height 2022-11-25 13:10:00 170.2 cm Juana flemingbold - External Body weight 2022-11-25 13:10:00 103.42 kg Juana flemingbold - External BMI 2022-11-25 13:10:00 35.71 kg/m2 Juana flemingbold - External Systolic blood 2022-10-29 21:21:00 163 mm[Hg] Univer sity of [facility] Diastolic blood 2022-10-29 21:21:00 89 mm[Hg] Unive rsity of pressure [facility] Heart rate 2022-10-29 21:21:00 91 /min [facility] Body temperature 2022-10-29 21:19:00 35.89 Niya [facility] Body height 2022-10-29 21:19:00 170.2 cm [facility] Body weight 2022-10-29 21:19:00 103.375 kg [facility] BMI 2022-10-29 21:19:00 35.69 kg/m2 [facility] Systolic blood 2022-08-23 19:37:00 140 mm[Hg] Univer sity of [facility] Diastolic blood 2022-08-23 19:37:00 88 mm[Hg] Unive rsity of pressure [facility] Heart rate 2022-08-23 19:36:00 91 /min Universi ty of [facility] Body temperature 2022-08-23 19:36:00 36.89 Niya Univ ersity of [facility] Body height 2022-08-23 19:36:00 170.2 cm Universi ty of [facility] Body weight 2022-08-23 19:36:00 103.919 kg Universi ty of [place] [facility] BMI 2022-08-23 19:36:00 35.88 kg/m2 Universi ty of [facility] Branch Systolic blood 2022-08-08 14:12:00 160 mm[Hg] Univer sity of pressure [facility] Diastolic blood 2022-08-08 14:12:00 91 mm[Hg] Unive rsity of pressure [facility] Heart rate 2022-08-08 14:11:00 78 /min Universi ty of [facility] Body height 2022-08-08 14:11:00 170.2 cm Universi ty of [place] [facility] Body weight 2022-08-08 14:11:00 103.103 kg Universi ty of [place] [facility] BMI 2022-08-08 14:11:00 35.60 kg/m2 Universi ty of [facility] Oxygen saturation in 2022-08-08 14:11:00 99 /min [facility] Arterial blood by [facility] Pulse oximetry Branch Procedures Procedure Date / Time Performing Clinician Source Performed ASSIGNMENT OF BENEFITS 2022-12-02 16:47:23 Doctor Unassigned, No [facility] CONSENT/REFUSAL FOR 2022-12-02 15:53:07 Doctor Unassigned, No [facility] DIAGNOSIS AND TREATMENT [facility] PATIENT QUESTIONNAIRE 2022-10-30 05:01:00 Doctor Unassigned, No [facility] BI SCREENING 2022-10-04 14:27:15 Jairon Gann Husser o f [place] TOMOSYNTHESIS BILATERAL [facility] PAP SMEAR-LIQUID 2022-08-23 20:33:00 Lakeisha Singleton [facility] BASED- Medical Branch ASSIGNMENT OF BENEFITS 2022-08-08 13:14:20 Doctor Unassigned, No [facility] Encounters Start End Encounter Admission Attending Care Care Encounter Source Date/Time Date/Time Type Type Clinicians Facility Department ID 2023-05-15 2023-05-15 Outpatient RAINER SMITH [id number] [place] 11:30:00 11:30:00 Seybol d 2023-02-07 2023-02-07 Outpatient Makayla GANN [facility] [id number] Univers 11:30:00 11:30:00 JAIRON banks [facility] 2023-02-03 2023-02-03 Outpatient HERNAN SAN [id number] [place] 08:00:00 08:00:00 Seybol d 2023-01-09 2023-01-09 Outpatient JUANA CLARK [id number] [place] 11:00:00 11:00:00 DANIELLE Seybol d 2023-01-08 2023-01-08 Outpatient JUANA MYERS [id number] [place] 10:00:00 10:00:00 URSZULA Seybol d 2023-01-06 2023-01-06 Outpatient HERNAN SAN [id number] [place] 16:30:00 16:30:00 Seybol d 2022-12-24 2022-12-24 Outpatient ARIANNA NOEL [id number] [place] 00:00:00 00:00:00 MD CAMDEN Seybol d 2022-12-21 2022-12-21 Outpatient HERNAN SAN [id number] [place] 00:00:00 00:00:00 Seybol d 2022-12-20 2022-12-20 Outpatient JUANA NOEL [id number] [place] 00:00:00 00:00:00 Seybol d 2022-12-19 2022-12-19 Outpatient RAINER SMITH [id number] [place] 00:00:00 00:00:00 Seybol d 2022-12-04 2022-12-04 Outpatient RAINER SMITH [id number] [place] 13:20:00 13:20:00 Seybol d 2022-12-03 2022-12-03 Outpatient HERNAN SAN [id number] [place] 00:00:00 00:00:00 Seybol d 2022-12-03 2022-12-03 Outpatient JUANA NOEL [id number] [place] 00:00:00 00:00:00 Seybol d 2022-12-02 2022-12-02 Emergency X ЕЛЕНА JAIN ERT [id number] Univers 11:11:00 14:27:00 PAULA ity of [facility] 2022-12-02 2022-12-02 Emergency [facility] [id number] Univers 11:11:00 14:27:00 Paula S [place] [id number] i ty [id number] [id number] [address] 2022-11-28 2022-11-28 Outpatient JUANA MYERS [id number] [place] 00:00:00 00:00:00 URSZULA Seybol d 2022-11-26 2022-11-26 Outpatient LAB90 JUANA NOEL [id number] [place] 14:45:00 14:45:00 Seybol d 2022-11-26 2022-11-26 Outpatient JUANA MYERS [id number] [place] 13:45:00 13:45:00 URSZULA Seybol d 2022-11-26 2022-11-26 Outpatient JUANA NOEL [id number] [place] 10:15:00 10:15:00 Seybol d 2022-11-26 2022-11-26 Outpatient JUANA NOEL [id number] [place] 00:00:00 00:00:00 Seybol d 2022-11-26 2022-11-26 Telephone Azeem [facility] [id number] [facility] 00:00:00 00:00:00 [facility] [id number] it y of [place] [id number] Agustín as HOLA?BLEA [id number] [place] [address] MEDICAL OFFICE BUILDING 2022-11-25 2022-11-25 Outpatient HERNAN SAN [id number] [place] 08:00:00 08:00:00 Seybol d 2022-11-25 2022-11-25 Outpatient JUANA NOEL [id number] [place] 00:00:00 00:00:00 Seybol d 2022-11-18 2022-11-18 Outpatient JUANA CLARK JUANA [id number] [place] 09:30:00 09:30:00 DANIELLE Macielol krupa 2022-11-16 2022-11-16 [facility] [id number] Univers 00:00:00 00:00:00 Jairon HEALTH [id number] it y of [place] [id number] Agustín as HOLA?BLEA [id number] [place] [address] MEDICAL OFFICE [facility] 2022-11-13 2022-11-13 Outpatient R [facility] [id number] Univers 11:15:00 11:15:00 ity [facility] 2022-11-04 2022-11-04 [facility] [id number] Univers 00:00:00 00:00:00 Jairon HEALTH [id number] it y of [place] [id number] Agustín as HOLA?BLEA [id number] [place] [address] MEDICAL OFFICE [facility] 2022-10-30 2022-10-30 Orders Doctor KWABENA [id number] Univers 00:00:00 00:00:00 Only Unassigned, BHUPENDRA [id number] ity of [place] [facility] [id number] Agustín as [id number] [address] 2022-10-29 2022-10-29 Outpatient R [facility] [id number] Univers 16:40:00 17:09:02 VY ity [facility] 2022-10-29 2022-10-29 Office [facility] [id number] Univers 16:40:00 17:09:02 Visit Vy SPECIALTY [id number] it[id number] [id number] [place] khloe [place] [address] [facility] 2022-10-10 2022-10-10 Outpatient R ROSE [facility] [id number] Univers 07:45:00 07:45:00 , KAL ity [facility] 2022-10-10 2022-10-10 Telephone Imeldaalexander [facility] [id number] Univers 00:00:00 00:00:00 , Kal SPECIALTY [id number] ity of [facility] [id number] [facility] AT [phone] [place] khloe [place] [address] [facility] 2022-10-10 2022-10-10 [facility]ill [facility] [id number] Univers 00:00:00 00:00:00 Jairon HEALTH [id number] it y of [place] 4.2.7.2.686 Agustín as HOLA?BLEA [id number] Nc khloe RICHARDSON [address] [place] [address] MEDICAL OFFICE BUILDING 2022-10-04 2022-10-04 [facility] [id number] Univers 08:19:51 23:59:00 JAIRON ity [facility] 2022-10-04 2022-10-04 [facility] [id number] Univers 08:19:51 23:59:00 Encounter Jairon MAY [id number] it[place] [id number] [address] 2022-09-25 2022-09-25 Outpatient R NAM [facility] [id number] Univers 11:00:00 11:00:00 RICHARD ity [facility] 2022-09-20 2022-09-20 Outpatient R [facility] [id number] Univers 15:30:00 15:30:00 LIZZIE ity [facility] 2022-09-20 2022-09-20 Telephone [facility] [id number] Univers 00:00:00 00:00:00 Jairon HEALTH [id number] it y of [place] 4.2.7.2.686 Agustín as HOLA?BLEA [id number] Nc diclazaro JUAREZEY 044 [facility] OFFICE [facility] 2022-09-13 2022-09-13 Refill Ney [facility] [id number] Univers 00:00:00 00:00:00 , Thelma HEALTH 350.1.13.10 ity of [place] 4.2.7.2.686 Agustín as HOLA?BLEA [id number] Nc diclazaro JUAREZEY [address] [place] [address] OFFICE [facility] 2022-08-23 2022-08-23 [facility] [id number] Univers 14:30:00 15:26:26 Visit Lakeisha MAY 350.1.13.10 ity of [place] [id number] Nc khloe [address] 2022-08-23 2022-08-23 Outpatient R [facility] [id number] Univers 14:30:00 15:26:[address] [facility] 2022-08-19 2022-08-19 [facility] [id number] Univers 00:00:00 00:00:00 Jairon HEALTH 350.1.13.10 it y of [place] 4.2.7.2.686 Agustín as HOLA?BLEA [id number] Nc dic[address] OFFICE [facility] 2022-08-16 2022-08-16 Telephone [facility] [id number] Univers 00:00:00 00:00:00 Jairon HEALTH 350.1.13.10 it y of [place] 4.2.7.2.686 Agustín as HOLA?BLEA [id number] Nc dical ANN[address] OFFICE [facility] 2022-08-08 2022-08-08 Outpatient R AZEEM [facility] [id number] Univers 10:03:22 23:59:00 JAIRON ity [facility] 2022-08-08 2022-08-08 Office [facility] [id number] Univers 09:00:00 09:30:00 Visit Jairon HEALTH 350.1.13.10 it y of [place] 4.2.7.2.686 Agustín as HOLA?BLEA [id number] Nc khloe [facility] [address] MEDICAL OFFICE BUILDING 2022-08-08 2022-08-08 Orders Doctor KWABENA [id number] Univers 00:00:00 00:00:00 Only Unassigned, BHUPENDRA 350.1.13.10 ity of [facility] 4.2.7.2.686 Agustín as [id number] [address] 2021-04-12 2021-04-12 Laboratory Only, Ang Db Test [facility] [id number] [id number] Univers 18:00:00 18:15:00 Only Green, Leann HEALTH 350.1.13.10 ity [facility] 4.2.7.2.686 Agustín as HOLA?BLEA [id number] [facility] [address] MEDICAL OFFICE [facility] 2021-04-12 2021-04-12 Outpatient R [facility] [id number] Univers 18:00:00 18:00:00 [id number] [facility] 2021-04-12 2021-04-12 Outpatient R [facility] [id number] Univers 18:00:00 17:46:21 LEANN [facility] Results This patient has no known results. Notes Date/Time Note Provider Source 2022-12-02 Formatting of this note might be differe nt from the original. Mariya Georges RN [facility] 14:26:47-00:00 Pt not present in treatment area, not answering call to lobby. 2022-12-02 [facility] 12:10:14-00:00 Called to room no response. 2022-12-02 Formatting of this note might be differe nt from the original. Bishnu Hernández [facility] 11:06:05-00:00 Patient to ED for HTN and li ghtheadedness. Reports she started amlodipine 5 mg 1 week ago. Yesterday it was high but she didn't have lightheadedness. No chest pain, no shortness of breath. RN 2022-11-27 Formatting of this note is different from the or iginal. [facility] 09:31:36-00:00 Last Refilled: atorvastatin 10 mg tablet 30 tablet 0 10/23/2022 -- Sig: Take 1 tablet by mouth at bedtime. MUST BE SEEN FOR FURTHER REFILLS Sent to pharmacy as: atorvastatin 10 mg tablet ( LIPITOR) Class: eRX Route: Oral Order: [id number] Date/Time Signed: 10/23/2022 15:01 E-Prescribing Status: Receipt confirmed by pharm joanie (10/23/2022 3:01 PM CDT) Medication Administration Instructions MUST BE SEEN FOR FURTHER REFILLS Recent Visits Date Type Provider Dept 08/08/22 Office Visit Jairon Gann FNP [facility] Showing recent visits within past 540 days with a meds authorizing provider and meeting all other requirements Future Appointments Date Type Provider Dept 02/07/23 Appointment Jairon Gann FNP [facility] Showing future appointments within next 150 days with a meds authorizing provider and meeting all other requirements 2022-11-26 Formatting of this note might be differe nt from the original. Tanja Wharton [facility] 14:12:21-00:00 Refill Request for atorvastatin 10 mg tablet Qty: 30 [facility] [id number] - A GENARO GASPAR - [address] [facility] [address] PH: [phone] Electronically signed by Tanja Wharton at 2:20 PM CDT 2022-11-25 Formatting of this note is different from the or iginal. Kaitlin 08:10:17-00:00 Chief Complaint Clinic Patient presents with Pain LBP left foot numbness pain 11/21. 2022-11-18 Formatting of this note is different from the or iginal. [facility] 07:34:12-00:00 Last Refilled: hydroCHLOROthiazide 25 mg tablet 90 tablet 0 07/14 No Sig: Take 1 tablet by mouth in the morning. Sent to pharmacy as: hydroCHLOROthiazide 25 mg t ablet (ESIDRIX) Class: eRX Route: Oral Order: [id number] Date/Time Signed: 08/08/2022 09:32 E-Prescribing Status: Receipt confirmed by pharm acangela (08/08/2022 9:33 AM CDT) Associated Diagnoses Hypertension, unspecified type - Primary Notes: Return in about 6 mon ths (around 02/07/2023), or if symptoms worsen or fail to improve. After Visit Summary (Automatic SnapShot taken ) Recent Visits Date Type Provider Dept 08/08/22 Office Visit Jairon Gann FNP [facility] Showing recent visits within past 540 days with a meds authorizing provider and meeting all other requirements Future Appointments Date Type Provider Dept 02/07/23 Appointment Jairon Gann FNP [facility] Showing future appointments within next 150 days with a meds authorizing provider and meeting all other requirements 2022-11-04 Formatting of this note is different fro m the original. Mila Guevara MA [facility] 15:08:46-00:00 Images from the original note were not included. Last Refilled: 10/23/22 Notes: refused due to duplic ate medication, pt must be seen for future refills. Recent Visits Date Type Provider Dept 08/08/22 Office Visit Jairon Gann FNP [facility] Showing recent visits within past 540 days with a meds authorizing provider and meeting all other requirements Future Appointments Date Type Provider Dept 02/07/23 Appointment Jairon aGnn FNP [facility] Showing future appointments within next 150 days with a meds authorizing provider and meeting all other requirements atorvastatin 10 mg tablet Possible duplicate: Hover to review recent acti ons on this medication Sig: Take 1 tablet by mouth at bedtime. MUST BE SEEN FOR FURTHER REFILLS Disp: 30 tablet Refills: 0 Start: 11/04/2022 Class: eRX Non-formulary For: Mixed hyperlipidemia Last ordered: 1 week ago (10/23/2022) by DARLINE Medeiros Cardiovascular: Antilipid - HMG-CoA Reductase Inhibitors Failed 11/04/2022 01:40 PM Protocol Details Total Cholesterol within 360 da ys LDL within 360 days HDL within 360 days Triglycerides within 360 days AST in normal range and within 360 days ALT in normal range and within 360 days Valid encounter within last 12 months To be filled at: [facility] [id number] - [place], [place] - [address] [facility] [address]
[2022-12-31 10:30] LABS: Absolute Lymphocytes (CBC) 1.4 K/uL (0.7-4.9); Hematocrit 40.6 % (36.0-45.0); Lymphocytes % 29.1 % (15.3-44.8); MCV 99.1 fL (80-100); MPV 7.9 fL (7.6-11.3); Platelets 259 thou/uL (152-406)
--- NOTE | 2022-12-31 10:38 | RAD REPORT ---
EXAM DESCRIPTION: Marylin Single View12/31/2022 10:27 am CLINICAL HISTORY: CHEST PAIN COMPARISON: No comparisons TECHNIQUE: Portable AP view of the chest. FINDINGS: The lungs are clear. No pneumothorax or effusion. The cardiomediastinal contours are unre markable. IMPRESSION: No acute cardiopulmonary process.
--- NOTE | 2022-12-31 10:38 | RAD REPORT ---
EXAM DESCRIPTION: CT - Head Brain Wo Cont - 12/31/2022 10:21 am CLINICAL HISTORY: Numbness;Dizziness COMPARISON: No comparisons TECHNIQUE: Noncontrast head CT images were obtained without IV contrast. Multiplanar reformats were generated and reviewed. All CT scans are performed using dose optimization technique as appropriate and may include automated exposure control or mA/KV adjustment according to patient size. FINDINGS: No intracranial hemorrhage, mass, or edema. Midline structures are unremarkable. Normal ventricular caliber for age. Wiley-white matter differentiation is preserved, without evidence of acute infarct. No abnormal extra- axial fluid collections. Mastoid air cells and visualized portions of the paranasal sinuses are clear. No acute bony findings. IMPRESSION: No evidence of an acute intracranial process.
[2022-12-31 10:47] LABS: Potassium 3.9 mEq/L (3.5-5.1)
--- NOTE | 2022-12-31 13:08 | ER ---
Nurse's Notes [facility] Name: Sheba Tavarez Age: 52 yrs Sex: Female : 1970 Arrival Date: 12/31/2022 Time: : Bed 8 Private MD: Diagnosis: Elevated blood-pressure reading, without diagnosis of hypertension;Tension-type headache;Paresthesia of skin Presentation: 12/31 09:25 Chief complaint: Patient states: Chest pressure, left arm tingling, clammy feet and jl7 hands since this morning. PCP has been trying to get BP under control for the last few months. 09:25 Coronavirus screen: At this time, the client does not indicate any symptoms associated jl7 with coronavirus-19. Ebola Screen: No symptoms or risks identified at this time. Initial Sepsis Screen: Does the patient meet any 2 criteria? No. Patient's initial sepsis screen is negative. Does the patient have a suspected source of infection? No. Patient's initial sepsis screen is negative. Risk Assessment: Do you want to hurt yourself or someone else? Patient reports no desire to harm self or others. Onset of symptoms was December 31, 2022. 09:25 Method Of Arrival: Ambulatory jl7 09:25 Acuity: LOPEZ 2 jl7 Triage Assessment: :33 General: Appears in no apparent distress. uncomfortable, Behavior is calm, cooperative, jl7 appropriate for age. Pain: Complains of pain in mid-sternal area Pain currently is 3 out of 10 on a pain scale. PHARMACY ORDER ENTRY TECHNICIAN: 09:33 LMP N/A - Hysterectomy, Not jl7 Historical: - Allergies: : No Known Allergies; jl7 - Home Meds: : amlodipine 5 mg tablet [Active]; olmesartan 20 mg oral tablet [Active]; jl7 Hydrochlorothiazide Oral [Active]; - PMHx: :33 Hypertensive disorder; Hypercholesterolemia; jl7 - PSHx: :33 Total abdominal hysterectomy; Cholecystectomy; jl7 - Immunization history:: Adult Immunizations unknown. - Social history:: Smoking status: Patient/guardian denies using tobacco, Stopped _ months ago 1. Screenin:03 [facility] ED Fall Risk Assessment (Adult) History of falling in the last 3 months, cp4 including since admission No falls in past 3 months (0 pts) Confusion or Disorientation No (0 pts) Intoxicated or Sedated No (0 pts) Impaired Gait No (0 pts) Mobility Assist Device Used No (0 pt) Altered Elimination No (0 pt) Score/Fall Risk Level 0 - 2 = Low Risk. Abuse screen: Denies threats or abuse. Nutritional screening: No deficits noted. Tuberculosis screening: No symptoms or risk factors identified. Assessment: 10:02 General: Appears in no apparent distress. Pain: Denies pain. Neuro: No deficits noted. cp4 Cardiovascular: Reports chest pressure. Respiratory: No deficits noted. GI: No deficits noted. : No deficits noted. EENT: No deficits noted. Derm: No deficits noted. Musculoskeletal: Reports numbness in right arm, left arm, right leg and left leg. 11:02 Reassessment: Patient appears in no apparent distress at this time. No changes from kc6 previously documented assessment. Patient and/or family updated on plan of care and expected duration. Pain level reassessed. Patient is alert, oriented x 3, equal unlabored respirations, skin warm/dry/pink. 12:11 Reassessment: Patient appears in no apparent distress at this time. No changes from kc6 previously documented assessment. Patient and/or family updated on plan of care and expected duration. Pain level reassessed. Patient is alert, oriented x 3, equal unlabored respirations, skin warm/dry/pink. 13:17 Reassessment: Patient appears in no apparent distress at this time. No changes from ld1 previously documented assessment. Patient and/or family updated on plan of care and expected duration. Pain level reassessed. Patient is alert, oriented x 3, equal unlabored respirations, skin warm/dry/pink. Vital Signs: 09:25 BP 179 / 103; Pulse 93; Resp 17; Temp 97.1; Pulse Ox 100% ; Weight 104.33 kg; Height 5 7 ft. 7 in. ; Pain 3/10; 12:11 BP 150 / 89; Pulse 74; Resp 16 S; Pulse Ox 97% on R/A; kc6 13:17 BP 152 / 84; Pulse 71; Resp 18; Pulse Ox 100% on R/A; ld1 09:25 Body Mass Index 36.02 (104.33 kg, 170.18 cm) [facility] 09:25 Pain Scale: [facility] ED Course: 09:21 Patient arrived in ED. rg4 09:24 Kati Cabral, SLAVA is PHCP. aj3 09:24 Krishna Blake MD is Attending Physician. aj3 09:33 Triage completed. jl7 09:33 Arm band placed on right wrist. jl7 10:03 Bed in low position. Call light in reach. Side rails up X 1. cp4 10:21 CT Head Brain wo Cont In Process Unspecified. EDMS 10:28 XRAY Chest (1 view) In Process Unspecified. EDMS 10:38 Inserted saline lock: 22 gauge in left forearm, using aseptic technique. Blood cp4 collected. 11:05 Olamide Richardson, RN is Primary Nurse. kc6 13:17 No provider procedures requiring assistance completed. IV discontinued, intact, ld1 bleeding controlled, No redness/swelling at site. Administered Medications: 13:17 Drug: Fioricet - Esgic PO 325 mg-40 mg-50 mg 1 tab-caps PO once Route: PO; ld1 Medication: 10:03 VIS not applicable for this client. cp4 Outcome: 13:08 Discharge ordered by . aj3 13:17 Discharged to home ambulatory, with family, ld1 13:17 Condition: stable 13:17 Discharge instructions given to patient, family, Instructed on discharge instructions, follow up and referral plans. Demonstrated understanding of instructions, follow-up care, 13:17 Patient left the ED. ld1 Signatures: Dispatcher [employer] Judith Ornelas rg4 José Miguel Allred RN RN jl7 Esme Lozoya RN RN ld1 Olamide Richardson, RN RN kc6 Kati Cabral NP [facility] [employer] Temitope Kingsley cp4
--- NOTE | 2022-12-31 13:08 | EDPHYS ---
Physician Documentation [facility] Name: Sheba Tavarez Age: 52 yrs Sex: Female : 1970 Arrival Date: 12/31/2022 Time: : Bed 8 Private MD: ED Physician Krishna Blake HPI: 12/31 09:42 This 52 yrs old Female presents to ER via Ambulatory with complaints of Dizziness, aj3 Numbness Of Arm, High Blood Pressure. 09:42 She reports that her blood pressures been pretty elevated over the last 3 to 4 months aj3 despite medication adjustments. She was more concerned today when she woke up feeling dizzy/lightheaded, chest pressure and some left arm tingling.. 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 - Social history:: Smoking status: Patient/guardian denies using tobacco, Stopped _ months ago 1. ROS: 09:43 Constitutional: Negative for fever, chills, and weight loss, aj3 09:43 Cardiovascular: Positive for Chest pressure, 09:43 Neuro: Positive for dizziness, headache, tingling, Left arm, Negative for altered mental status, gait disturbance, numbness, syncope, visual changes, weakness, 09:43 Respiratory: Negative for shortness of breath, cough, wheezing, and pleuritic chest aj3 pain, Abdomen/GI: Negative for abdominal pain, nausea, vomiting, diarrhea, and constipation, MS/Extremity: Negative for injury and deformity, Skin: Negative for injury, rash, and discoloration, 09:43 Neuro: aj3 Exam: 09:43 Constitutional: This is a well developed, well nourished patient who is awake, alert, aj3 and in no acute distress. Cardiovascular: Regular rate and rhythm with a normal S1 and S2. No gallops, murmurs, or rubs. Normal PMI, no JVD. No pulse deficits. Respiratory: Lungs have equal breath sounds bilaterally, clear to auscultation and percussion. No rales, rhonchi or wheezes noted. No increased work of breathing, no retractions or nasal flaring. Skin: Warm, dry with normal turgor. Normal color with no rashes, no lesions, and no evidence of cellulitis. MS/ Extremity: Pulses equal, no cyanosis. Neurovascular intact. Full, normal range of motion. Neuro: Awake and alert, GCS 15, oriented to person, place, time, and situation. Motor strength 5/5 in all extremities. Sensory grossly intact. Normal gait. 09:43 ECG was reviewed by the Attending Physician. aj3 Vital Signs: 09:25 BP 179 / 103; Pulse 93; Resp 17; Temp 97.1; Pulse Ox 100% ; Weight 104.33 kg; Height 5 jl7 ft. 7 in. ; Pain 3/10; 12:11 BP 150 / 89; Pulse 74; Resp 16 S; Pulse Ox 97% on R/A; kc6 13:17 BP 152 / 84; Pulse 71; Resp 18; Pulse Ox 100% on R/A; ld1 09:25 Body Mass Index 36.02 (104.33 kg, 170.18 cm) jl7 09:25 Pain Scale: Adult jl7 MDM: 09:32 Patient medically screened. aj3 10:15 Differential diagnosis: cardiac arrhythmia, CVA, head injury, hypovolemia, TIA. aj3 12:45 Data reviewed: vital signs, nurses notes, lab test result(s), EKG, radiologic studies, aj3 I have discussed the patient's presentation/case with the attending Emergency Department Physician;. I considered the following discharge prescriptions or medication management in the emergency department Medications were administered in the Emergency Department. See MAR. Independent interpretation of the following test(s) in the Emergency Department EKG: See my EKG interpretation above CT Scan: My interpretation is No obvious head bleed noted. Care significantly affected by the following chronic conditions: Hypertension. Counseling: I had a detailed discussion with the patient and/or guardian regarding the historical points, exam findings, and any diagnostic results supporting the discharge/admit diagnosis, lab results, radiology results, the need for outpatient follow up, to return to the emergency department if symptoms worsen or persist or if there are any questions or concerns that arise at home. 12/31 10:10 Order name: Basic Metabolic Panel; Complete Time: 10:12/31 10:10 Order name: CBC with Diff; Complete Time: :12/31 10:10 Order name: Troponin HS; Complete Time: :12/31 10:10 Order name: XRAY Chest (1 view); Complete Time: :12/31 10:10 Order name: CT Head Brain wo Cont; Complete Time: :12/31 10:10 Order name: EKG; Complete Time: :12/31 10:10 Order name: Cardiac monitoring; Complete Time: :12/31 10:10 Order name: EKG - Nurse/Tech; Complete Time: :12/31 10:10 Order name: IV Saline Lock; Complete Time: :12/31 10:10 Order name: Labs collected and sent; Complete Time: 12/31 10:10 Order name: O2 Per Protocol; Complete Time: 12/31 10:10 Order name: O2 Sat Monitoring; Complete Time: 10: EC:34 Rate is 84 beats/min. Rhythm is regular. QRS [place] is Normal. IN interval is normal. QRS aj3 interval is normal. QT interval is normal. No ST changes noted. Clinical impression: Normal sinus rhythm with incomplete right bundle branch block. Interpreted by me. Reviewed by me. Administered Medications: 13:17 Drug: Fioricet - Esgic PO 325 mg-40 mg-50 mg 1 tab-caps PO once Route: PO; ld1 Disposition: 17:20 Co-signature as Attending Physician, Krishna Blake MD I reviewed the patient's care rn provided by the Advanced Practice Provider and agree with the diagnosis and treatment plan. Disposition Summary: 12/31/22 13:08 Discharge Ordered Notes: Location: Home aj3 Problem: new aj3 Symptoms: have improved aj3 Condition: Stable aj3 Diagnosis - Elevated blood-pressure reading, without diagnosis of hypertension aj3 - Tension-type headache aj3 - Paresthesia of skin aj3 Followup: aj3 - With: Private Physician - When: - Reason: Recheck today's complaints, Re-evaluation by your physician Followup: aj3 - With: Emergency Department - When: - Reason: Worsening of condition Discharge Instructions: - Discharge Summary Sheet aj3 - Hypertension, Adult aj3 Forms: - Work release form aj3 - Medication Reconciliation Form aj3 - Thank You Letter aj3 - Antibiotic Education aj3 - Prescription Opioid Use aj3 - Patient Portal Instructions aj3 - Leadership Thank You Letter aj3 Signatures: Dispatcher [employer] EDKrishna Fajardo MD MD rn Leal, Jahala, RN RN jl7 Esme Lozoya RN RN ld1 Kati Cabral NP STORAGE GARAGE ATTENDANT aj3
[2022-12-31] MEDS ORDERED: ACETAMIN/CAFFEINE/BUTALB TAB PO ONE (13:24)
[2022-12-31 14:48] VITALS: TEMP 97.1
[2022-12-31 14:49] VITALS: BP 152/84; O2SAT 100
--- NOTE | 2023-01-01 14:36 | EKG ---
Test Date: 2022-12-31 Test Time: 09:34:42 Route Sales Delivery Driver: Cecil REYNOLDS MEASUREMENT RESULTS: Intervals: Rate: 84 KS: 150 QRSD: 94 QT: 386 QTc: 456 [place]: P: 55 KS: 150 QRS: 63 T: 64 INTERPRETIVE STATEMENTS: Normal sinus rhythm Incomplete right bundle branch block Borderline ECG Compared to ECG 12/30/2006 13:24:23 T-wave abnormality no longer present Electronically Signed On 01-01-23 14:32:28 CDT by Santiago Parker
== END 2022-12-31 13:17 | disposition home or self-care (01) ==
LOC: ER 09:19
DX: G44.209 Tension-type headache, unspecified, not intractable (principal); R20.2 Paresthesia of skin; I10 Essential (primary) hypertension; R07.89 Other chest pain
CPT/HCPCS: 36415; 70450; 71045; 80048; 84484; 85025; 93005